=== PATIENT | female | born 1940 | race Caucasian/White ===

== ENCOUNTER → 2016-09-20 | Day surgery (SDC) | payer MEDICARE ==
[~2016-09-20] MED LIST: ENAL20TA PO; FURO40TA PO; HYDR-3516 PO; IBUP800T23 PO; LIDOCAINE HCL 1% PF 30 ML VIAL INFIL ONE; MEPERIDINE HCL 25 MG/ML VIAL IV ONE; MIDAZOLAM HCL 2 MG/2 ML VIAL IV ONE; PROPOFOL 200 MG/20 ML AMP IV ONE; SIMV20TA PO; SODIUM CHLORIDE 0.9% 10 ML VIAL ONE; methylPREDNISolone ACETATE 40 MG/ML VIAL I-ARTICULR ONE
--- NOTE | 2016-09-22 21:46 | M6 ---
cc: JUNE LOO M.D. DATE 09/20/2016 DATE OF 1940 PROCEDURE Radiofrequency rhizotomy multiple left cervical facet joints (left C2-3, C3-4, C4-5 and C5-6 facet joints). History and physical was completed and signed. Consent was signed. Procedure site was marked. Medications were listed and reconciled. Pain score was recorded. Allergies were noted. Time out was taken. Fluoroscopy time was recorded where applicable. Sedation was administered or directed by Dr. Loo. The patient was given oxygen. The patient was monitored by a registered nurse. Total procedure time was greater than 15 minutes. IV was started, blood pressure cuff, pulse oximeter and EKG were applied. The patient was placed in the prone position on a Gelacio table sedated with small amounts of propofol titrated to effect. Vital signs were monitored and remained stable throughout the procedure. The cervical area was prepped with alcohol and 10% Betadine solution and draped with sterile drapes. Fluoroscopy was used to visualize the target areas which were the "waist" between the cervical facet joints at C2-3, C3-4, C4-5 and C5-6. The skin was infiltrated with 1% Xylocaine using a 27 gauge needle. Then an insulated 20-gauge radiofrequency needle with a 5-mm tip was advanced to the above-mentioned target areas. Fluoroscopy was used to confirm the needle was not near the nerve root. Once properly positioned thermal lesions took place at 80 degrees centigrade times 100 seconds. This was followed by injection of a small amount of Depo-Medrol for a total of 40 milligrams of Depo-Medrol. Following the procedure the patient was taken to the recovery room with stable vital signs, neurologically intact. W. MD LIZ Munoz/ISAIAS /7:59 AM /9:44 PM
== END | disposition home or self-care (01) ==
LOC: PHSDC 06:39
PROVIDERS: ATTEND Pain Medicine Interventional Pain Medicine
DX: M54.2 Cervicalgia (principal)
CPT/HCPCS: 64633; 64634; 99152; 99153; J1030; J2175; J2250